=== PATIENT | male | born 1990 | race Two or more races ===

== ENCOUNTER 2021-11-18 00:33 | Emergency (ER) | payer SELFPAY ==
[~2021-11-18] VITALS: Ht 177.8 cm; Wt 77.0 kg
[2021-11-18] MEDS ORDERED: SODIUM CHLORIDE 0.9% 1,000 ML IV ONE ×2 (00:45)
[2021-11-18 02:23] LABS: Basophils # (auto) 0.1 10 ^3/uL (0-0.2); Basophils % (auto) 0.8 % (0.0-2.0); Eosinophils # (auto) 0.5 10 ^3/uL (0-0.8); Eosinophils % (auto) 3.3 % (0.0-7.0); Hematocrit 47.2 % (41.0-53.0); Hemoglobin 16.3 g/dL (13.5-17.5); Lymphocytes # (auto) 3.4 10 ^3/uL (0.4-5.4); Lymphocytes % (auto) 21.6 % (10.0-50.0); Mean Corpuscular Hemoglobin 30.3 pg (28.0-32.0); Mean Corpuscular Hgb Conc. 34.5 g/dL (32.0-36.0); Monocytes # (auto) 1.7 10 ^3/uL (0-1.3); Monocytes % (auto) 10.9 % (0.0-12.0); Neutrophils # (auto) 10.1 10 ^3/uL (1.6-8.6); Neutrophils % (auto) 63.4 % (37.0-80.0); Red Blood Cells 5.36 10^6/uL (4.5-5.90); Red Cell Distribution Width 13.2 % (11.8-14.3); White Blood Cell 15.9 10^3/uL (4.4-10.8)
[2021-11-18] MEDS ORDERED: LORazepam 2MG/ML-1ML VIAL IV ONE (02:30)
[2021-11-18 02:48] LABS: Albumin 4.5 g/dL (3.4-5.0); BUN/Creatinine Ratio 19.6; Calcium 9.4 mg/dL (8.5-10.1); Potassium 3.9 mmol/L (3.5-5.1)
[2021-11-18 02:50] LABS: Bilirubin, Total 2.2 mg/dL (0.2-1.0); Total Protein 7.4 g/dL (6.4-8.2)
[2021-11-18] MEDS ORDERED: cefTRIAXone 1GM/50ML D5W 50 ML IV ONE (04:45)
[2021-11-18 11:47] VITALS: BP 108/67
[2021-11-18] MEDS ORDERED: ALBUTEROL SULF 2.5 MG/0.5ML(0.5%) NEB SOLN NEB ONE ×2 (12:15)
== END 2021-11-18 12:44 | disposition home or self-care (01) ==
LOC: ER 00:33 → EDBD 00:33 → ER 12:41
DX: F99 Mental disorder, not otherwise specified (principal); F19.10 Other psychoactive substance abuse, uncomplicated
CPT/HCPCS: 36415; 70450; 71045; 80053; 84484; 85025; 94640; 96361; 96365; 96375; 99285; J0696; J7030